=== PATIENT | male | born 1945 | race Caucasian/White ===

== ENCOUNTER 2018-12-29 17:42 | Inpatient (IN) | payer MEDICARE, OTHER ==
[~2018-12-29] VITALS: Ht 175.3 cm; Wt 105.3 kg
[2018-12-29 19:45] VITALS: BP 118/68
[2018-12-29 23:00] VITALS: BP 128/61
[2018-12-30] MEDS ORDERED: ACETAMINOPHEN 325 MG TABLET. PO PRN
[2018-12-30] MEDS ORDERED: DEXTROSE 50% 25 GM / 50ML DISP.SYRIN. IV PRN
[2018-12-30] MEDS ORDERED: MAGNESIUM HYDROXIDE 2,400 MG/30 ML ORAL.SUSP. PO PRN
[2018-12-30] MEDS ORDERED: METHYL SALICYLATE/MENTHOL TOPICAL OINTMENT 57GM TUBE. TP PRN
[2018-12-30] MEDS ORDERED: BENZOCAINE 10% ORAL GEL 7GM TUBE. TP PRN
[2018-12-30] MEDS ORDERED: IV DEXTROSE 5% 250 ML BAG. IV PRN
[2018-12-30] MEDS ORDERED: MAG HYDROX/ALUMINUM HYD/SIMETH 30 ML ORAL.SUSP PO PRN
[2018-12-30] MEDS ORDERED: CETIRIZINE HCL 10 MG TABLET. PO PRN
[2018-12-30 03:00] VITALS: BP 114/60
[2018-12-30 04:20] LABS: HEMATOCRIT 32.5 % (39.0-53.0); RED BLOOD COUNT 3.51 x10^6/uL (4.30-5.70); RED CELL DISTRIBUTION WIDTH 13.7 % (11.5-14.5); WHITE BLOOD COUNT 5.5 x10^3/uL (4.0-11.0)
[2018-12-30 04:36] LABS: ALBUMIN 2.8 g/dL (3.4-5.0); ALBUMIN/GLOBULIN RATIO 0.8 (1.0-1.7); C-REACTIVE PROTEIN 4.4 mg/L (0-3.3); CALCIUM 8.8 mg/dL (8.5-10.1); CREATININE 0.9 mg/dL (0.7-1.3); GFR 82.3; POTASSIUM 4.3 mmol/L (3.5-5.1); TOTAL BILIRUBIN 0.2 mg/dL (0.2-1.0); TOTAL PROTEIN 6.4 g/dL (6.4-8.2)
[2018-12-30] MEDS ORDERED: C.DIFF MED SCREEN BY RX. MC ONE (05:30)
[2018-12-30 07:00] VITALS: BP 127/62
[2018-12-30] MEDS: INSULIN LISPRO 300 UNITS/3 ML VIAL. SQ SCH ×3 (08:00→17:00)
[2018-12-30] MEDS: ASPIRIN CHEWABLE 81 MG TABLET. PO SCH (08:49)
[2018-12-30] MEDS: CARBIDOPA/LEVODOPA 10/100MG TABLET PO SCH ×3 (08:51→21:56)
[2018-12-30] MEDS: ASCORBIC ACID 500 MG TABLET PO SCH ×2 (08:51→21:56)
[2018-12-30] MEDS: LACTOBACILLUS RHAMNOSUS GG 1 CAPSULE. PO SCH ×2 (08:52→21:56)
[2018-12-30] MEDS: metFORMIN 500 MG TABLET PO SCH ×3 (08:53→18:28)
[2018-12-30] MEDS ORDERED: FLU VAX QS 2019-20 (36MOS+)/PF 0.5 ML SYRINGE. VAX IM ONE (09:00)
[2018-12-30] MEDS ORDERED: CEPHALEXIN 250 MG CAPSULE. PO SCH (09:00)
[2018-12-30] MEDS: INSULIN GLARGINE SYRINGE. SQ SCH ×2 (09:14→22:22)
--- NOTE | 2018-12-30 09:31 | PN ---
DATE: 12/30/2018 SUBJECTIVE: The patient is resting, slightly propped up in bed, no apparent distress, awake and alert. On questioning him, denied any complaint. Nursing staff did not voice any concerns that he had an uneventful night. OBJECTIVE: GENERAL: When I examined him, he looked pale but no jaundice, cyanosis or thyromegaly. No jugular venous distention. No limb edema. VITAL SIGNS: His heart rate was 104, blood pressure was 127/62, temperature was 98.3, respiratory rate 22 and oxygen saturation was 93% on room air. HEENT: Showed normocephalic, atraumatic. NECK: Supple. HEART: Showed normal first and second heart sounds. No gallop, rub or murmur. CHEST: Clear to auscultation. No crepitation or rhonchi. ABDOMEN: Distended, soft, nontender. NEUROLOGIC: He is awake and alert, responding appropriately. All cranial nerves intact. He moves all extremities without difficulty; however, he is mostly wheelchair bound. Most of his skin infection has largely resolved; however, he has worsening decubitus ulcer on both heels that is reason for transfer to this hospital. LABORATORY DATA: His lab work this morning showed a white cell count 5500, hemoglobin 11, hematocrit 33, MCV 93 and platelet count of 198,000. His sedimentation rate was 20. His chemistry showed a serum sodium 140, potassium 4.3, chloride 105, bicarbonate 32, anion gap of 3, BUN 19 and creatinine 0.9. Estimated GFR was 82 mL per minute. His glucose was 101. Calcium was 8.8. Total bilirubin, AST, ALT and alkaline phosphatase were normal. Total protein was 6.4 and albumin 2.8. C-reactive protein was 4.4 mg/dL. ASSESSMENT: This is a 73-year-old male patient who was admitted with worsening bilateral heel decubitus ulcer with possible underlying osteomyelitis and has severe peripheral vascular disease. He is known to have insulin- requiring type 2 diabetes mellitus, hypertension and hyperlipidemia. He is an ex-smoker. He is status post right big toe amputation and left fifth toe amputation. We have already consulted the Infectious Disease specialist, the vascular surgeon as well as the wound care team. TANNER CENTENO MD DR: LON/cas JOB#: [id number] / [id number]
--- NOTE | 2018-12-30 09:47 | RAD ---
Examination: FOOT BILAT 3V History: Heel ulcers Comparison/Correlation: None Findings: Three-view exam of the right foot and 3 views, left foot were obtained. Portable technique was utilized. Right foot Amputation of the entire first digit is noted with the exception of the proximal phalangeal proximal metaphyseal and epiphyseal region. Small calcaneal spur is present. Vascular calcifications noted. Left foot 3 view Amputation of the left fifth digit and the distal two thirds of the left fifth metatarsal bone noted. Small calcaneal spur is present. Vascular calcification noted. Spurring bilaterally is noted involving the feet. No bony destructive findings are evident. No acute fracture. Impression: No bony destruction. Consider further evaluation with three-phase bone scintigraphy examination or possibly MRI without and with contrast if able for evaluation of osteomyelitis if clinically warranted. Electronically signed by: Ford Rangel MD (12/30/2018 9:44 AM) [facility]
--- NOTE | 2018-12-30 09:48 | HP ---
ADMIT DATE: 12/29/2018 HISTORY OF PRESENT ILLNESS: The patient is a 73-year-old male patient who was transferred yesterday. In fact, he was admitted to [facility] on 10/31/2018 as a transfer from [facility], who was admitted on account of being delusional, sexually inappropriate, grabbing staff, private parts exposing genitals, being all around the unit, verbally aggressive, paranoid. Apparently, he was hiding his things around facility and then blames others were stealing them, barricading bathroom with chairs and running sink until flooded, propped chairs inside the bathroom door. He was refusing medications including insulin, making graciously inappropriate comments, all this in a background of major depressive disorder as well as dementia, Alzheimer, vascular with behavioral disturbances. While there, he did have multiple skin infections in the form of folliculitis treated with Keflex with good effect. However, he has developed wounds in his heel that have been progressively worsening, has had venous arterial Doppler ultrasound done yesterday, which basically showed that the patient has significant stenosis, at least 50% within the left popliteal artery and given the worsening of bilateral heel decubitus ulcers and stenosis, a decision was made to transfer him to [facility] as recommended by the wound care team to consult the vascular surgeon, Infectious Disease specialist as well as continue with wound care. PAST MEDICAL HISTORY: Significant for type 2 diabetes mellitus, hypertension, peripheral vascular disease, generalized osteoarthritis. PAST SURGICAL HISTORY: Significant for right big toe amputation and left fifth toe amputation. ALLERGIES: He has no known drug allergies. FAMILY HISTORY: Noncontributory. SOCIAL HISTORY: He is . He was residing at [facility]. He used to be an ex-smoker, quit years ago. He continues to drink alcohol occasionally. He actually was transferred from [facility]. MEDICATIONS: He is currently on following medications: He is on cetirizine 10 mg once a day, cephalexin 500 mg 4 times a day, cilostazol 100 mg twice a day, metoprolol tartrate immediate release 25 mg once a day at bedtime, aspirin chewable 81 mg once a day, analgesic balm 4 times a day, acetaminophen 650 mg twice a day, mirtazapine 7.5 mg at bedtime, olanzapine for Zyprexa Zydis 2.5 mg every 2 hours, risperidone 0.25 mg at bedtime, risperidone 12.5 mg intramuscular every 2 weeks. He is on carbidopa/levodopa 10/100 three times a day. He is on benzocaine 10% oral for Orajel 4 times a day as needed, Mylanta 15 mL after meals and milk of magnesia 30 mL p.o. daily p.r.n. for constipation, lactobacillus rhamnosus 1 capsule twice a day. He is on metformin 1000 mg twice a day. He is on Lantus insulin 45 units at bedtime. He is on Lantus insulin 10 units daily. He is on Humalog insulin as insulin sliding scale before meals. He is on ascorbic acid 500 mg twice a day. PHYSICAL EXAMINATION: GENERAL: On examining him, he was resting slightly propped up in bed, in no apparent respiratory distress, slightly pale, but no jaundice, cyanosis or thyromegaly. No jugular venous distention. No limb edema. VITAL SIGNS: His heart rate was 118, blood pressure was 118/68, temperature was 98.1, respiratory rate was 20, and oxygen saturation was 94%. HEAD, EYES, EARS, NOSE AND THROAT: Showed normocephalic, atraumatic. NECK: Supple. HEART: Showed normal first and second heart sounds. No gallop, rub or murmur. CHEST: Clear to auscultation. No crepitation or rhonchi. ABDOMEN: Distended, soft, nontender. No guarding or rigidity. No organomegaly. All hernial orifices intact. Bowel sounds normal. NEUROLOGIC: He is awake, alert, responding appropriately. All cranial nerves are intact. He moves upper extremities to much good extent than lower extremities, mostly bedbound and chair bound. LABORATORY DATA: His lab work showed a white cell count 7000, hemoglobin 11, hematocrit 34, MCV 94 and platelet count 235,000 with normal manual differential. His chemistry showed serum sodium 140, potassium 3.9, chloride 102, bicarbonate 28, anion gap of 10, BUN 21, creatinine 1.2. Estimated GFR was 59 mL per minute. His glucose was 64, calcium was 8.4. Total bilirubin, AST, ALT, alkaline phosphatase were normal. His total protein was 6.7, albumin 3. ASSESSMENT AND PLAN: In summary, this is a 73-year-old male patient who was transferred from [facility] on account of worsening bilateral heel decubitus ulcers with possible underlying osteomyelitis, has severe peripheral vascular disease, type 2 diabetes mellitus, hypertension, and hyperlipidemia. He is an ex-smoker. Plan is to arrange for x-ray of both heel joints, consult the vascular surgeon as an arterial Doppler ultrasound showed more than 50% narrowing of the left gluteal artery. Consult Infectious Disease specialist. Continue to consult the wound care team. Continue to monitor his blood sugar and adjust insulin as needed. Continue with all other medications. TANNER CENTENO MD DR: LON/cas JOB#: [id number] / [id number]
--- NOTE | 2018-12-30 10:29 | PDOC ---
Infectious Disease Note Vital Sign Vital Signs Vital Signs Date Time Temp Pulse Resp B/P (MAP) Pulse Ox O2 Delivery O2 Flow Rate FiO2 12/30/18 07:00 98.3 104 22 127/62 (83) 93 Room Air 98.3 Labs Lab Laboratory Tests Test 12/29/18 21:19 12/30/18 04:00 12/30/18 09:11 Glucose (Fingerstick) 146 mg/dL (70-99) 116 mg/dL (70-99) White Blood Count 5.5 x10^3/uL (4.0-11.0) Red Blood Count 3.51 x10^6/uL (4.30-5.70) Hemoglobin 11.0 g/dL (13.0-17.5) Hematocrit 32.5 % (39.0-53.0) Mean Corpuscular Volume 93 fL (79-100) Mean Corpuscular Hemoglobin 32 pg (25-35) Mean Corpuscular Hemoglobin Concent 34 g/dL (31-37) Red Cell Distribution Width 13.7 % (11.5-14.5) Platelet Count 198 x10^3/uL (140-400) Erythrocyte Sedimentation Rate 20 (0-15) Sodium Level 140 mmol/L (136-145) Potassium Level 4.3 mmol/L (3.5-5.1) Chloride Level 105 mmol/L (98-107) Carbon Dioxide Level 32 mmol/L (21-32) Anion Gap 3 (6-14) Blood Urea Nitrogen 19 mg/dL (8-26) Creatinine 0.9 mg/dL (0.7-1.3) Estimated GFR (Cockcroft-Gault) 82.3 BUN/Creatinine Ratio 21 (6-20) Glucose Level 101 mg/dL (70-99) Calcium Level 8.8 mg/dL (8.5-10.1) Total Bilirubin 0.2 mg/dL (0.2-1.0) Aspartate Amino Transf (AST/SGOT) 16 U/L (15-37) Alanine Aminotransferase (ALT/SGPT) 15 U/L (16-63) Alkaline Phosphatase 54 U/L (46-116) C-Reactive Protein, Quantitative 4.4 mg/L (0-3.3) Total Protein 6.4 g/dL (6.4-8.2) Albumin 2.8 g/dL (3.4-5.0) Albumin/Globulin Ratio 0.8 (1.0-1.7) Objective Assessment Pressure wound/eschar, left mainly, rt minimal, do not believe has osteo, ( not deep and sr normal x ray normal) CVA Plan Plan of Care no need for further ID workup off load DOMINIK DELUCA MD Dec 30, 2018 10:29
[2018-12-30] MEDS: CILOSTAZOL 50 MG TABLET. PO SCH ×2 (10:48→21:55)
--- NOTE | 2018-12-30 10:51 | CONS ---
DATE OF CONSULTATION: 12/30/2018 REQUESTING PHYSICIAN: Dr. Rocha. REASON FOR CONSULTATION: Bilateral calcaneal wounds. HISTORY OF PRESENT ILLNESS: This is a 73-year-old gentleman who has had stroke and he has not been able to walk and wheelchair bound for at least 3 years, who was transferred from [facility]. The patient says he has been in multiple nursing homes last 3-4 years and the patient was at [facility] for abnormal behavior. The patient was noted to have bilateral heel wounds, hence he was transferred for further management. The patient denies any nausea, vomiting or diarrhea. Denies any chest pain, shortness of breath, abdominal pain, urinary symptoms or bowel symptoms. PAST MEDICAL HISTORY: Positive for diabetes mellitus, hypertension, peripheral vascular disease, osteoarthritis, and had a stroke. SOCIAL HISTORY: Negative for smoking, alcohol, illicit drug use. ALLERGIES: No known drug allergies. CURRENT MEDICATIONS: The patient is on cephalexin. REVIEW OF SYSTEMS: As per HPI, all other systems reviewed are negative. PHYSICAL EXAMINATION: GENERAL: Alert, oriented gentleman, not in any distress. VITAL SIGNS: Stable, afebrile. HEENT: NAD. NECK: Supple, no JVP, no lymphadenopathy. LUNGS: Clear. HEART: S1, S2 regular. ABDOMEN: Benign. EXTREMITIES: Mild pitting edema present. The patient's peripheral pulses are weak. Right calcaneal area has very minor superficial skin breakdown. Left calcaneal area has a black eschar, appears superficial. There is no drainage. There are no signs of infection. NEUROLOGIC: The patient is neurologically alert, awake, and appropriate, has good upper extremity use. Lower extremity, he does not have much of use. LABORATORY DATA: White count is 5.5, hemoglobin 11.0, platelets are normal. Sed rate is 20. BUN and creatinine are normal. Liver functions are normal. X-ray of the feet was unremarkable. IMPRESSION: 1. Bilateral calcaneal wounds, although mainly left. Both are pressure wounds. There are no signs of infection. 2. Diabetes. 3. Hypertension. 4. Abnormal behavior. 5. Cerebrovascular accident. RECOMMENDATIONS: We do not see the need for any further Infectious Disease workup. He also does not need any antibiotics. All he needs is offload and Vascular is consulted arterial insufficiency. DOMINIK DELUCA MD DR: KENRICK/cas JOB#: [id number] / [id number] DANET[place]
[2018-12-30 11:00] VITALS: BP 140/72
--- NOTE | 2018-12-30 13:23 | PDOC ---
Provider Note Provider Note Vascular Surgery Consult dictated 73 year old male with bilateral heel wounds worse in the left foot compared to the right. He has vascular disease by examination and duplex. Plan angiogram with IR tomorrow for bilateral runoff and possible initial left leg intervention tomorrow. Will need bilateral heel debridement surgery which will tentatively be scheduled for Thursday. Check carotid duplex. ABBY HORTON MD Dec 30, 2018 13:23
--- NOTE | 2018-12-30 13:57 | RAD ---
EXAM: Carotid Doppler sonogram. HISTORY: Stroke. TECHNIQUE: Davison scale and color Doppler sonographic evaluation of the neck with spectral waveform analysis was performed and static images are submitted for review. FINDINGS: The internal carotid arteries are tortuous. The peak systolic velocity within the right common carotid artery is 86 cm/sec. The peak systolic velocity within the right internal carotid artery is 79 cm/sec and the end diastolic velocity within the right internal carotid artery is 18 cm/sec. The peak systolic velocity within the left common carotid artery is 90 cm/sec. The peak systolic velocity within the left internal carotid artery is 80 cm/sec and the end diastolic velocity within the left internal carotid artery is 19 cm/sec. There is normal antegrade flow within both vertebral arteries. IMPRESSION: No Doppler evidence of hemodynamically significant stenosis within the carotid or vertebral arteries. PQRS Compliance Statement - Stenosis calculations for CT, MR and conventional angiography are based upon measurement of the distal ICA diameter in accordance with the NASCET methodology. Stenosis calculations for carotid ultrasound studies are derived from validated velocity criteria which are known to correlate with the NASCET methodology. Electronically signed by: Madina Michele MD (12/30/2018 1:54 PM) [place] [id number]
[2018-12-30 14:37] LABS: PROTHROMBIN TIME PATIENT 13.4 SEC (11.7-14.0)
[2018-12-30 15:00] VITALS: BP 127/61
--- NOTE | 2018-12-30 15:51 | NUR ---
Wound care: Patient seen per wound care consult. See wound assessment. Patient is well known to us from [place]. Patient has right heel and left heel DFU. First patient transferred over to [address] Wounds are cleansed and assessed. Recommendations to pad heels with ABD pads and kerlix at this time. Patient is scheduled for intervention with IR on 12/31/18, then surgery on 01/05/19 with vascular. Dressings applied. no other wounds noted. coccyx is reddened but remains blanchable. brief and chux changed. Patient repositioned to right side. Bed lowered and call light in reach.
--- NOTE | 2018-12-30 18:56 | NUR ---
Pharmacy Medication Review S: Consulted for medication review re: C.diff Risk Assessment score of 6 O: HODA GONZALEZ is a 73 year old with: DECUB ULCERS Previous C.diff infection: No Previous hospitalization: Within 30 days Recent antibiotics: Within 30 days Use of gastric acid suppressor: No Transfer from [place]: Yes Current antibiotic regimen: Keflex po [employer], now discontinued Current acid suppression regimen: n/a A: Patient has been identified as having risk factors for C.diff infection as noted above. P: Antibiotic Regimen recommendation made: N/A Probiotic ordered: culturelle po bid PPI changed to [id number]: N/A OSMAN BRYAN [facility], 12/30/18 [id number]
[2018-12-30 19:00] VITALS: BP 122/59
--- NOTE | 2018-12-30 20:43 | CONS ---
DATE OF CONSULTATION: 12/30/2018 CHIEF COMPLAINT: Bilateral heel wounds. HISTORY OF PRESENT ILLNESS: The patient is a 73-year-old male with a history of stroke, who has been wheelchair bound and unable to ambulate for the past several years. He was transferred here from [facility] because of ulcers in his heel and abnormal behavior. He has had chronic ulcers in his left and right heel, the left has been worse than the right. He does have some pain with palpation of the left heel wound, but when resting is comfortable. He has had no fevers or chills. Again, he is nonambulatory from his previous stroke. He reports no significant pain in the legs. He has been evaluated with an arterial duplex scan, which shows signs of left popliteal and tibial disease. REVIEW OF SYSTEMS: A 10-point review of systems was performed, which was otherwise negative besides what is mentioned in history of present illness. PAST MEDICAL HISTORY: Includes: 1. Diabetes mellitus. 2. Hypertension. 3. Peripheral arterial disease. 4. Osteoarthritis. 5. History of stroke. SOCIAL HISTORY: He does not smoke or drink alcohol. ALLERGIES: No known drug allergies. PHYSICAL EXAMINATION: GENERAL: The patient is awake and alert. He is currently in no apparent distress. He is afebrile. VITAL SIGNS: Blood pressure of 140/72, pulse of 103, respirations 22 and he is 94% on room air. NECK: Supple. HEART: Regular rate and rhythm without murmurs. LUNGS: Have bilateral breath sounds to auscultation. His bilateral upper extremities are warm without edema. ABDOMEN: Obese, but is soft, nondistended and nontender. EXTREMITIES: His bilateral lower extremities are warm, he has no significant edema in his lower legs or feet. The left heel has an extensive ulceration with black eschar of the skin, no significant surrounding erythema, no fluctuance, no drainage or signs of significant infection. His right heel has a very small ulcer of the skin, deep to the superficial subcutaneous tissue level. There is no surrounding erythema or drainage. He has had previous toe amputations surgeries in the past, which have healed, but this was done many years ago. On vascular examination, he has palpable bilateral femoral pulses. I do not palpate pedal pulses in his feet. NEUROLOGIC: He is awake and alert, normal strength in his arms, chronic weakness in the legs, normal speech, no acute neurologic deficits. IMPRESSION: 1. Bilateral heel ulcers, significantly worse in the left heel compared to the right heel. 2. Signs of bilateral lower extremity peripheral arterial disease by duplex scan and nonpalpable pulses on examination. PLAN: The patient has signs of significant peripheral arterial disease and nonhealing ulcers on his right and left heel. I recommend an angiogram with bilateral lower extremity runoff to evaluate his circulation and a possible initial left leg intervention since the ulcer is worse in his left heel than his right. He may need staged right leg intervention if needed. His creatinine is normal. We will arrange the angiogram tomorrow with Interventional Radiology. He will need eventual debridement of his heel wounds and likely wound VAC therapy; however, there is no need for urgent surgical intervention since there are no signs of significant infection. I certainly would evaluate and improve his circulation prior to debridement. He also has a history of a stroke. We will check a carotid artery duplex scan. He is on daily aspirin. Infectious Disease is following. ABBY HORTON MD DR: KINA/cas JOB#: [id number] / [id number]
[2018-12-30] MEDS: MIRTAZAPINE 7.5 MG TABLET. PO SCH (21:56)
[2018-12-30] MEDS: risperiDONE 0.25 MG TABLET. PO SCH (21:56)
[2018-12-30] MEDS: METOPROLOL TART IMMED RELEASE 25 MG TABLET. PO SCH (21:57)
[2018-12-30 23:00] VITALS: BP 114/56
[2018-12-31] VITALS (13 sets, daily range): BP systolic 91–145; BP diastolic 53–89
[2018-12-31] MEDS: INSULIN LISPRO 300 UNITS/3 ML VIAL. SQ SCH ×3 (08:00→18:02)
[2018-12-31] MEDS: metFORMIN 500 MG TABLET PO SCH ×2 (08:00→18:02)
[2018-12-31] MEDS: CARBIDOPA/LEVODOPA 10/100MG TABLET PO SCH ×3 (09:00→21:28)
[2018-12-31] MEDS: ASCORBIC ACID 500 MG TABLET PO SCH ×2 (09:00→21:28)
[2018-12-31] MEDS: CILOSTAZOL 50 MG TABLET. PO SCH ×2 (09:00→21:28)
[2018-12-31] MEDS: LACTOBACILLUS RHAMNOSUS GG 1 CAPSULE. PO SCH ×2 (09:00→21:29)
--- NOTE | 2018-12-31 09:39 | PDOC ---
Infectious Disease Note Subjective Subjective pt is feeling good, no complaints ROS ROS no n/v/d/sob Vital Sign Vital Signs Vital Signs Date Time Temp Pulse Resp B/P (MAP) Pulse Ox O2 Delivery O2 Flow Rate FiO2 12/31/18 07:00 97.6 89 17 128/65 (86) 93 Room Air 97.6 Physical Exam PHYSICAL EXAM GENERAL: Alert, oriented gentleman, not in any distress. VITAL SIGNS: Stable, afebrile. HEENT: NAD. NECK: Supple, no JVP, no lymphadenopathy. LUNGS: Clear. HEART: S1, S2 regular. ABDOMEN: Benign. EXTREMITIES: Mild pitting edema present. The patient's peripheral pulses are weak. Right calcaneal area has very minor superficial skin breakdown. Left calcaneal area has a black eschar, appears superficial. There is no drainage. There are no signs of infection. NEUROLOGIC: The patient is neurologically alert, awake, and appropriate, has good upper extremity use. Lower extremity, he does not have much of use. Labs Lab Laboratory Tests Test 12/30/18 11:05 12/30/18 14:19 12/30/18 16:58 12/30/18 22:11 Glucose (Fingerstick) 116 mg/dL (70-99) 104 mg/dL (70-99) 141 mg/dL (70-99) Prothrombin Time 13.4 SEC (11.7-14.0) Prothromb Time International Ratio 1.1 (0.8-1.1) Activated Partial Thromboplast Time 26 SEC (24-38) Test 12/31/18 07:46 Glucose (Fingerstick) 88 mg/dL (70-99) Objective Assessment 1. Bilateral calcaneal wounds, although mainly left. Both are pressure wounds. There are no signs of infection. 2. Diabetes. 3. Hypertension. 4. Abnormal behavior. 5. Cerebrovascular accident. 6 PAD Plan Plan of Care angio no antibiotics off load will s/o, please call if condition changes or questions DOMINIK DELUCA MD Dec 31, 2018 09:39
[2018-12-31] MEDS ORDERED: LIDOCAINE WITH 8.4% SOD BICARB 3 ML DISP.SYRIN. ONE (09:46)
[2018-12-31] MEDS ORDERED: IODIXANOL 320 MG/ML 100 ML VIAL. ONE (09:46)
[2018-12-31] MEDS ORDERED: HEPARIN for ARTERIAL LINE 1,500 ML ONE (09:46)
[2018-12-31] MEDS ORDERED: fentaNYL PF VIAL 100 MCG/2 ML VIAL ONE (10:06)
[2018-12-31] MEDS ORDERED: MIDAZOLAM HCL/PF 2 MG/2 ML VIAL. ONE (10:06)
[2018-12-31] MEDS ORDERED: HEPARIN for IV BOLUS 10,000 UNIT/10 ML VIAL. ONE (10:06)
[2018-12-31] MEDS: INSULIN GLARGINE SYRINGE. SQ SCH ×2 (10:11→21:31)
--- NOTE | 2018-12-31 10:39 | PN ---
DATE: 12/31/2018 SUBJECTIVE: The patient was transferred from [facility] with worsening bilateral heel decubitus ulcers. He was seen by the vascular surgeon and apparently he is scheduled for an aortogram with runoff. He himself did not offer any complaint. He was seen by the wound care team as well as the Infectious Disease team and the plan is to observe him off antibiotics for now. PHYSICAL EXAMINATION: GENERAL: On examining him, he looked well and was clearly in no apparent respiratory distress. No pallor, jaundice, cyanosis or thyromegaly. No jugular venous distension. No lower limb edema. VITAL SIGNS: His heart rate was 89, blood pressure was 128/65, temperature was 97.6, respiratory rate was 17 and oxygen saturation was 93%. HEAD, EYES, EARS, NOSE AND THROAT: Showed normocephalic, atraumatic. NECK: Supple. CARDIAC: Normal first and second heart sounds. No gallop or murmur. CHEST: Clear to auscultation. No crepitation or rhonchi. ABDOMEN: Distended, soft, nontender. No guarding or rigidity. No organomegaly All hernial orifice intact. Bowel sounds normal. NEUROLOGIC: He is awake, alert, responding appropriately. He moves his upper extremities without difficulty. He is mostly bedbound, chair bound. LABORATORY DATA: His lab work as of yesterday showed hemoglobin of 11, hematocrit 33 with normal white cell count and platelets. His BUN is 19 and creatinine 0.9 with normal electrolytes and liver function tests. ASSESSMENT: 1. Bilateral heel ulcers significantly worse the left side compared to the right. 2. Peripheral vascular disease with an arterial Doppler ultrasound done at [facility]. He is scheduled for further evaluation by an angiogram today and eventual debridement of his heel wounds and wound VAC placement. TANNER CENTENO MD DR: LON/cas JOB#: [id number] / [id number]
[2018-12-31] MEDS ORDERED: IODIXANOL 320 MG/ML 100 ML VIAL. IART ONE (11:45)
[2018-12-31] MEDS ORDERED: LIDOCAINE WITH 8.4% SOD BICARB 3 ML DISP.SYRIN. IJ ONE (11:45)
[2018-12-31] MEDS ORDERED: fentaNYL PF VIAL 100 MCG/2 ML VIAL IV ONE (11:45)
[2018-12-31] MEDS ORDERED: HEPARIN for IV BOLUS 10,000 UNIT/10 ML VIAL. IV ONE (11:45)
[2018-12-31] MEDS ORDERED: MIDAZOLAM HCL/PF 2 MG/2 ML VIAL. IV ONE (11:45)
[2018-12-31] MEDS: ASPIRIN CHEWABLE 81 MG TABLET. PO SCH (12:22)
--- NOTE | 2018-12-31 12:58 | RAD ---
12/31/2018 Procedure: 1. Abdominal aortogram 2. Pelvic angiography 3. Left lower extremity angiography 4. Left popliteal artery angioplasty 5. Right lower extremity angiography Clinical Indication: angio with bilateral runoff and possible initial left leg intervention Discussion: The procedure was explained in its entirety to the patient or the patients designated players club representative by a member of the treatment team, including a discussion of the risks, benefits and commonly accepted alternatives to the procedure, as well as the expected consequences of no therapy whatsoever. Discussion of the risks included, but was not limited to, those that are most frequent and those that are rare but possibly severe or life-threatening, as well as the possibility of unforeseen complications. All elements of maximal sterile barrier technique including the use of a cap, mask, sterile gown, sterile gloves, large sterile sheet, appropriate hand hygiene, and 2% chlorhexidine for cutaneous antisepsis (or acceptable alternative antiseptic per current guidelines) were followed for this procedure. The right groin was prepped and draped using sterile barrier technique as described. The right common femoral artery was accessed ultrasound-guided be patent. Right common femoral artery was accessed using micropuncture technique and direct ultrasound guidance. Reference ultrasound images were saved the medical record. A 5 [place] vascular sheath was placed. An Omni flush catheter was advanced to the abdominal aorta. Abdominal angiography was performed. The abdominal aorta is normal in course and caliber without evidence of aneurysm or narrowing. Limited evaluation of mesenteric and renal vasculature is unremarkable. The catheter was repositioned into the inferior abdominal aorta. Pelvic angiography was performed demonstrating no significant aortoiliac stenosis. Some tortuosity of the iliac vasculature is seen. The catheter was repositioned in the left common femoral artery. Angiograms of the left lower extremity were performed demonstrating 70% stenosis of the left popliteal artery. No other hemodynamically significant stenosis involving the major arteries of left lower extremity were identified. Specifically the posterior tibial artery remains patent supplying the heel with hyperemia noted surrounding the heel wound. Abdomen over sheath was placed. Angioplasty of the popliteal artery stenosis performed with a 5 cm balloon which improved morphology and flow. Mild residual persistent narrowing was seen. Angiography of the right lower extremity was then performed through the sheath. Right common femoral, superficial femoral, popliteal, anterior tibial, posterior tibial arteries are patent. Dorsalis pedis and lateral plantar artery or patent proximally. The sheath was removed. A Mynx device was deployed to facilitate hemostasis. Sterile dressings were applied. No immediate complications were identified. IMPRESSION: 1. No evidence of hemodynamic significant aortoiliac stenosis 2. 70% popliteal artery narrowing treated with balloon angioplasty as described. Three-vessel runoff on the left. 3. No evidence of femoropopliteal stenosis on the right. Three-vessel runoff on the right. Total fluoroscopy time: 11.9 min Dose area product: 280 Gycm2 The procedures performed under conscious sedation including continuous cardiopulmonary monitoring via dedicated sedation nurse. Eehf-ih-effk sedation time: 144 minutes
[2018-12-31] MEDS: MIRTAZAPINE 7.5 MG TABLET. PO SCH (21:28)
[2018-12-31] MEDS: risperiDONE 0.25 MG TABLET. PO SCH (21:28)
[2018-12-31] MEDS: METOPROLOL TART IMMED RELEASE 25 MG TABLET. PO SCH (21:29)
[2019-01-01] VITALS (7 sets, daily range): BP systolic 86–142; BP diastolic 42–80
[2019-01-01] MEDS: INSULIN LISPRO 300 UNITS/3 ML VIAL. SQ SCH ×3 (08:00→17:39)
--- NOTE | 2019-01-01 08:40 | PN ---
DATE: 01/01/2019 SUBJECTIVE: The patient is resting, slightly propped up in bed, in no apparent distress, awake, alert. On questioning him, he denied any complaint. He apparently has had an aortogram done yesterday and showed no evidence of hemodynamically significant aortoiliac stenosis, 70% popliteal artery narrowing treated with balloon angioplasty as described, 3-vessel runoff on the left, no evidence of femoral popliteal stenosis on the right, 3-vessel runoff in the right. He was seen in consultation by the Infectious Disease who did not recommend any antibiotic and he is also followed by the wound care team. PHYSICAL EXAMINATION: GENERAL: When I examined him this morning, he looked well and was clearly in no apparent respiratory distress. No pallor, jaundice, cyanosis or thyromegaly. No jugular venous distention. No limb edema. VITAL SIGNS: His heart rate was 111, blood pressure was 112/42, temperature was 97.7, respiratory rate was 18 and oxygen saturation was 91%. HEAD, EYES, EARS, NOSE AND THROAT: Showed normocephalic, atraumatic. NECK: Supple. HEART: Showed normal first and second heart sounds. No gallop or murmur. CHEST: Clear to auscultation. No crepitation or rhonchi. ABDOMEN: Distended, soft, nontender. No guarding or rigidity. No organomegaly. All hernial orifices intact. Bowel sounds normal. NEUROLOGIC: He was awake, alert, responding appropriately. All cranial nerves are intact. He moves his upper extremities to much good extent than lower extremities, mostly bedbound, chair bound. He has bilateral heel decubitus ulcer, worse on the left. ASSESSMENT: Other medical problems include: 1. Type 2 diabetes mellitus, reasonably controlled. 2. Hypertension. 3. Cerebrovascular accident. 4. Peripheral vascular disease. PLAN: To continue with wound care. Continue to monitor his blood sugar and adjust insulin as needed. Continue with pain management. We obviously come Thursday will [facility] to see whether he qualifies to be there or otherwise he will be discharged back to his [facility] [place] [facility] facility. TANNER CENTENO MD DR: LON/cas JOB#: [id number] / [id number]
[2019-01-01] MEDS: ASPIRIN CHEWABLE 81 MG TABLET. PO SCH (09:02)
[2019-01-01] MEDS: LACTOBACILLUS RHAMNOSUS GG 1 CAPSULE. PO SCH ×2 (09:02→20:30)
[2019-01-01] MEDS: ASCORBIC ACID 500 MG TABLET PO SCH ×2 (09:03→20:31)
[2019-01-01] MEDS: metFORMIN 500 MG TABLET PO SCH ×2 (09:03→17:31)
[2019-01-01] MEDS: CILOSTAZOL 50 MG TABLET. PO SCH ×2 (09:03→20:31)
[2019-01-01] MEDS: CARBIDOPA/LEVODOPA 10/100MG TABLET PO SCH ×3 (09:03→20:31)
[2019-01-01] MEDS: INSULIN GLARGINE SYRINGE. SQ SCH ×2 (09:06→20:40)
[2019-01-01] MEDS: METOPROLOL TART IMMED RELEASE 25 MG TABLET. PO SCH (20:31)
[2019-01-01] MEDS: MIRTAZAPINE 7.5 MG TABLET. PO SCH (20:31)
[2019-01-01] MEDS: risperiDONE 0.25 MG TABLET. PO SCH (20:31)
[2019-01-02 03:07] VITALS: BP 102/44
[2019-01-02 07:00] VITALS: BP 83/44
[2019-01-02] MEDS: INSULIN LISPRO 300 UNITS/3 ML VIAL. SQ SCH ×3 (08:00→17:00)
[2019-01-02] MEDS: metFORMIN 500 MG TABLET PO SCH ×2 (08:00→17:41)
[2019-01-02] MEDS: CILOSTAZOL 50 MG TABLET. PO SCH ×2 (09:00→21:13)
[2019-01-02] MEDS ORDERED: IV NORMAL SALINE 500ML BAG 500 ML IV ONE (09:15)
--- NOTE | 2019-01-02 09:15 | PN ---
DATE: 01/02/2019 SUBJECTIVE: The patient is resting, slightly propped up in bed, no apparent distress. He is awake, alert. In questioning him, he denied any complaint. The nursing staff; however, is concerned that his blood sugar is low and he is also mildly hypertensive. PHYSICAL EXAMINATION: GENERAL: When I examined him, he looked pale, but no jaundice, cyanosis or thyromegaly. No jugular venous distension. No limb edema. VITAL SIGNS: His heart rate was 100, blood pressure was 83/44, temperature was 98.2, respiratory rate was 18 and oxygen saturation was 95% on room air. HEAD, EYES, EARS, NOSE AND THROAT: Showed he is normocephalic, atraumatic. NECK: Supple. HEART: Showed normal first and second heart sounds with no gallop or murmur. CHEST: Clear to auscultation. No crepitation or rhonchi. ABDOMEN: Distended, soft, nontender. NEUROLOGIC: He was awake, alert, responding appropriately. All cranial nerves are intact. He moves upper extremities without difficulty. He is mostly bedbound, chair bound. He has bilateral decubitus ulcers in both knees, more so on the left. His intake and output were incompletely recorded. LABORATORY DATA: As of this morning, his blood sugar was 65. PLAN: Plan is to hold his metoprolol and cut down his Lantus to 35 units and ordered a bolus of 500 mL of normal saline. We will repeat all his lab works tomorrow. TANNER CENTENO MD DR: LON/cas JOB#: [id number] / [id number]
[2019-01-02] MEDS: LACTOBACILLUS RHAMNOSUS GG 1 CAPSULE. PO SCH ×2 (09:48→21:13)
[2019-01-02] MEDS: ASPIRIN CHEWABLE 81 MG TABLET. PO SCH (09:48)
[2019-01-02] MEDS: ASCORBIC ACID 500 MG TABLET PO SCH ×2 (09:48→21:14)
[2019-01-02] MEDS: CARBIDOPA/LEVODOPA 10/100MG TABLET PO SCH ×3 (09:48→21:13)
[2019-01-02] MEDS: INSULIN GLARGINE SYRINGE. SQ SCH ×2 (09:53→21:16)
[2019-01-02 11:00] VITALS: BP 99/49
[2019-01-02 15:00] VITALS: BP 115/58
[2019-01-02 19:00] VITALS: BP 145/73
[2019-01-02] MEDS: MIRTAZAPINE 7.5 MG TABLET. PO SCH (21:13)
[2019-01-02] MEDS: METOPROLOL TART IMMED RELEASE 25 MG TABLET. PO SCH (21:13)
[2019-01-02] MEDS: risperiDONE 0.25 MG TABLET. PO SCH (21:13)
[2019-01-02 23:00] VITALS: BP 148/82
[2019-01-03 03:00] VITALS: BP 121/76
[2019-01-03 06:01] LABS: HEMOGLOBIN 11.8 g/dL (13.0-17.5); RED BLOOD COUNT 3.78 x10^6/uL (4.30-5.70); RED CELL DISTRIBUTION WIDTH 13.8 % (11.5-14.5); WHITE BLOOD COUNT 6.9 x10^3/uL (4.0-11.0)
[2019-01-03 06:23] LABS: ALBUMIN 2.9 g/dL (3.4-5.0); ALBUMIN/GLOBULIN RATIO 0.8 (1.0-1.7); CALCIUM 8.7 mg/dL (8.5-10.1); CREATININE 0.9 mg/dL (0.7-1.3); GFR 82.3; POTASSIUM 3.9 mmol/L (3.5-5.1); TOTAL BILIRUBIN 0.2 mg/dL (0.2-1.0); TOTAL PROTEIN 6.6 g/dL (6.4-8.2)
[2019-01-03 07:00] VITALS: BP 115/61
[2019-01-03] MEDS: INSULIN LISPRO 300 UNITS/3 ML VIAL. SQ SCH ×3 (08:00→17:00)
--- NOTE | 2019-01-03 10:02 | PN ---
DATE: 01/03/2019 SUBJECTIVE: The patient is resting slightly propped up in bed, in no apparent respiratory distress, awake and alert. On questioning, he denied any complaint to nursing staff, did not voice any concern, and stated that his blood sugar has been stable. Blood pressure has improved after an IV bolus yesterday. He is apparently scheduled for surgical debridement tomorrow. PHYSICAL EXAMINATION: GENERAL: When I examined him this morning, he looked well and was clearly in no apparent respiratory distress. No pallor, jaundice, cyanosis, or thyromegaly. No jugular venous distension. No lower limb edema. VITAL SIGNS: His heart rate was 102, blood pressure 115/61, temperature was 97.3, respiratory rate was 17, and oxygen saturation was 96%. HEAD, EYES, EARS, NOSE, AND THROAT: Normocephalic and atraumatic. NECK: Supple. CARDIAC: Normal first and second heart sounds. No gallop or murmur. CHEST: Clear to auscultation. No crepitation or rhonchi. ABDOMEN: Distended, soft, and nontender. NEUROLOGIC: He was awake, alert, and responding appropriately. All cranial nerves intact. He moves upper extremities without difficulty and has functional paraplegia. He is mostly bedbound and chair bound. SKIN: He has bilateral heel decubitus ulcer for which he is scheduled for debridement tomorrow. His intake over the last 24 hours and output were incompletely recorded. LABORATORY DATA: His lab work as of this morning showed a white cell count 6900, hemoglobin 11.8, hematocrit 35, MCV 93, and platelet count of 190,000. Serum sodium 144, potassium 3.9, chloride 108, bicarbonate 27, anion gap of 9, BUN 17, creatinine 0.9, and estimated GFR was 82 mL per minute. Glucose was 101. Calcium was 8.7. Total bilirubin, AST, ALT, and alkaline phosphatase were normal. Total protein was 6.6. Albumin 2.9. ASSESSMENT: 1. Bilateral heel decubitus ulcers, worse on the left. 2. Severe peripheral vascular disease, status post angioplasty with stent deployment to the left gluteal artery. Other medical problems include: A. Type 2 diabetes mellitus, reasonably controlled. B. Hypertension. C. Cerebrovascular accident. PLAN: To continue with wound care. Continue offloading his wounds. Continue to monitor his blood sugar and adjust insulin as needed. He is apparently scheduled for surgical debridement tomorrow. TANNER CENTENO MD DR: LON/cas JOB#: [id number] / [id number]
[2019-01-03 11:00] VITALS: BP 113/55
[2019-01-03] MEDS: ASCORBIC ACID 500 MG TABLET PO SCH ×2 (12:49→21:00)
[2019-01-03] MEDS: CILOSTAZOL 50 MG TABLET. PO SCH ×2 (12:49→21:01)
[2019-01-03] MEDS: LACTOBACILLUS RHAMNOSUS GG 1 CAPSULE. PO SCH ×2 (12:49→21:01)
[2019-01-03] MEDS: metFORMIN 500 MG TABLET PO SCH ×2 (12:49→17:08)
[2019-01-03] MEDS: CARBIDOPA/LEVODOPA 10/100MG TABLET PO SCH ×3 (12:50→21:01)
[2019-01-03] MEDS: ASPIRIN CHEWABLE 81 MG TABLET. PO SCH (12:50)
[2019-01-03] MEDS: INSULIN GLARGINE SYRINGE. SQ SCH ×2 (12:54→21:00)
--- NOTE | 2019-01-03 13:52 | NUR ---
JESSICA following pt for dc planning. Chart reviewed and discussed with RN. Pt is a transferred from [facility]. Spoke with Sharon at [facility] and pt has been staying at the unit since 10/31/18. Pt was originally from [facility] and rehab but is not able to return. Blu at [facility] has been working on finding placement at an Assisted Living facility in [place]. Per Sharon, they were awaiting for pt's LTC medicaid to switch to [facility] Medicaid. JESSICA left a voice mail for Blu Lee at [facility] requesting a call back. Pt does not have any behaviors at this time and has been stable even at [facility] but will need placement. Pt is scheduled for a procedure tomorrow. Will continue to follow.
[2019-01-03 15:00] VITALS: BP 102/58
[2019-01-03 19:00] VITALS: BP 111/63
[2019-01-03] MEDS: MIRTAZAPINE 7.5 MG TABLET. PO SCH (21:00)
[2019-01-03] MEDS: risperiDONE 0.25 MG TABLET. PO SCH (21:00)
[2019-01-03] MEDS: METOPROLOL TART IMMED RELEASE 25 MG TABLET. PO SCH (21:01)
[2019-01-03 23:00] VITALS: BP 97/62
[2019-01-04] VITALS (12 sets, daily range): BP systolic 81–122; BP diastolic 40–88
[2019-01-04] MEDS ORDERED: IV RINGERS,LACTATED 1000ML 1,000 ML IV SCH (07:00)
[2019-01-04] MEDS ORDERED: PROCHLORPERAZINE 10 MG/2 ML VIAL. IV PRN (07:00)
[2019-01-04] MEDS ORDERED: HYDROmorphone 2 MG/ML VIAL IV PRN (07:00)
[2019-01-04] MEDS ORDERED: fentaNYL PF VIAL 100 MCG/2 ML VIAL IV PRN ×2 (07:00)
[2019-01-04] MEDS ORDERED: MORPHINE SULFATE 2 MG/ML VIAL. IV PRN (07:00)
[2019-01-04] MEDS: INSULIN LISPRO 300 UNITS/3 ML VIAL. SQ SCH ×3 (08:00→17:33)
[2019-01-04] MEDS: ASPIRIN CHEWABLE 81 MG TABLET. PO SCH (08:00)
[2019-01-04] MEDS: metFORMIN 500 MG TABLET PO SCH ×2 (08:00→17:29)
[2019-01-04] MEDS: LACTOBACILLUS RHAMNOSUS GG 1 CAPSULE. PO SCH ×2 (09:00→21:40)
[2019-01-04] MEDS: ASCORBIC ACID 500 MG TABLET PO SCH ×2 (09:00→21:41)
[2019-01-04] MEDS: CILOSTAZOL 50 MG TABLET. PO SCH ×2 (09:00→21:40)
[2019-01-04] MEDS: INSULIN GLARGINE SYRINGE. SQ SCH ×2 (09:00→21:48)
[2019-01-04] MEDS: CARBIDOPA/LEVODOPA 10/100MG TABLET PO SCH ×3 (09:00→21:40)
--- NOTE | 2019-01-04 09:17 | PDOC ---
PROGRESS NOTES Subjective Subjective no complaints Objective Objective Vital Signs Date Time Temp Pulse Resp B/P (MAP) Pulse Ox O2 Delivery O2 Flow Rate FiO2 01/04/19 07:00 97.6 84 16 100/51 (67) 92 97.6 01/03/19 20:00 Room Air Intake and Output 01/04/19 07:00 Intake Total 120 ml Balance 120 ml Intake Oral 120 ml # Voids 2 Physical Exam Abdomen: Normal bowel sounds, Soft Heart: Regular rate, Normal S1 Extremities: No clubbing General: Alert HEENT: Atraumatic Lungs: Clear to auscultation Neck: Supple Neuro: Normal speech Psych/Mental Status: Mood NL Assessment Assessment ASSESSMENT: 1. Bilateral heel decubitus ulcers, worse on the left. 2. Severe peripheral vascular disease, status post angioplasty with stent. 3. Type 2 diabetes mellitus, reasonably controlled. 4. Hypertension. 5. Cerebrovascular accident. PLAN: Debridement today cuate heal ulcers. s/p stent placement. To continue with wound care. Continue offloading his wounds. Continue to monitor his blood sugar and adjust insulin as needed. labs reviewed , spoke with staff. Comment Review of Relevant I have reviewed the following items kaylah (where applicable) has been applied. Labs Laboratory Tests Test 01/03/19 11:43 01/03/19 17:06 01/03/19 20:59 01/04/19 08:15 Glucose (Fingerstick) 111 mg/dL (70-99) 141 mg/dL (70-99) 146 mg/dL (70-99) 108 mg/dL (70-99) Medications Current Medications Cefazolin Sodium 1 gm/Sodium Chloride 500 ml @ 500 mls/hr 1X ONCE IRR ; Start 01/04/19 at 06:00; Stop 01/04/19 at 06:59; Status DC Cefazolin Sodium/ Dextrose 50 ml @ 100 mls/hr 1X PREOP ONCE IV ; Start 01/04/19 at 09:30; Stop 01/04/19 at 09:59 Fentanyl Citrate (Fentanyl 2ml Vial) 25 mcg PRN Q5MIN PRN IV MILD PAIN 1-3; Start 01/04/19 at 07:00; Stop 01/05/19 at 06:59 Fentanyl Citrate (Fentanyl 2ml Vial) 50 mcg PRN Q5MIN PRN IV MODERATE TO SEVERE PAIN; Start 01/04/19 at 07:00; Stop 01/05/19 at 06:59 Hydromorphone HCl (Dilaudid) 0.5 mg PRN Q10MIN PRN IV SEV PAIN, Second choice; Start 01/04/19 at 07:00; Stop 01/05/19 at 06:59 Morphine Sulfate (Morphine Sulfate) 1 mg PRN Q10MIN PRN IV SEVERE PAIN 7-10; Start 01/04/19 at 07:00; Stop 01/05/19 at 06:59 Prochlorperazine Edisylate (Compazine) 5 mg PACU PRN PRN IV NAUSEA, MRX1; Start 01/04/19 at 07:00; Stop 01/05/19 at 06:59 Ringer's Solution 1,000 ml @ 30 mls/hr Q24H IV ; Start 01/04/19 at 07:00; Stop 01/04/19 at 18:59 Risperidone (RisperDAL CONSTA) 12.5 mg Q2WKS IM ; Start 01/07/19 at 09:00 Vitals/I & O Vital Sign - Last 24 Hours 01/03/19 01/03/19 01/03/19 01/03/19 11:00 15:00 19:00 20:00 Temp 98.2 97.9 98.6 98.2 97.9 98.6 Pulse 70 100 108 Resp 17 18 20 B/P (MAP) 113/55 (74) 102/58 (73) 111/63 (79) Pulse Ox 94 97 98 O2 Delivery Room Air Room Air Room Air 01/03/19 01/03/19 01/04/19 01/04/19 21:01 23:00 03:00 07:00 Temp 98.6 97.8 97.6 98.6 97.8 97.6 Pulse 108 97 96 84 Resp 18 16 16 B/P (MAP) 111/63 97/62 (74) 97/57 (70) 100/51 (67) Pulse Ox 96 95 92 Intake and Output 01/03/19 01/03/19 01/04/19 15:00 23:00 07:00 Intake Total 120 ml Balance 120 ml AUGUSTO DIOR MD Jan 04, 2019 09:17
[2019-01-04] MEDS ORDERED: SURGICEL FIBRILLAR 1X2 EACH. ONE (09:22)
[2019-01-04] MEDS ORDERED: LIDOCAINE 1% PF 30 ML VIAL. ONE (09:22)
[2019-01-04] MEDS ORDERED: LIDOCAINE 2% PF 5 ML VIAL. ONE (10:26)
[2019-01-04] MEDS ORDERED: fentaNYL PF VIAL 100 MCG/2 ML VIAL ONE (10:26)
[2019-01-04] MEDS ORDERED: PROPOFOL 20 ML IV ONE (10:26)
--- NOTE | 2019-01-04 10:26 | NUR ---
Per pt's daughter, Valerie, she has been working the the ins co as they have chosen a new facility for the pt to go on upon d/c. Valerie requested to speak with SW. SCHERER for [facility]. Pt is in OR at this time, but Valerie will be bedside the remainder of the day.
--- NOTE | 2019-01-04 10:47 | PDOC ---
Provider Note Provider Note AF VSS awake and alert right groin with no hematoma right and left foot with dry dressings, has necrotic bilateral heel ulcers A/P 73 year old male with bilateral heel ulcers (left worse than right) and peripheral artery disease. He had an angiogram with left popliteal artery angioplasty. No significant right leg disease. Plan bilateral heel debridement today in OR. ABBY HORTON MD Jan 04, 2019 10:47
[2019-01-04] MEDS ORDERED: ONDANSETRON PF 4 MG/2 ML VIAL. ONE (10:57)
[2019-01-04] MEDS ORDERED: SEVOFLURANE 31 TO 60 MINUTES. IH ONE (10:57)
[2019-01-04] MEDS ORDERED: PHENYLEPHRINE in 0.9% NACL PF 1 MG/10 ML SYRINGE. IV ONE (10:57)
--- NOTE | 2019-01-04 11:52 | PDOC4 ---
Operative Note Operative Note Operative Report Dictated Pre-op: bilateral heel necrotic ulcers Post-op: same Surgery: Bilateral heel debridement Anesthesia: general Blood loss: minimal Surgeon: ABBY Clark MD Jan 04, 2019 11:52
--- NOTE | 2019-01-04 12:07 | OP ---
DATE OF SURGERY: 01/04/2019 SURGEON: Colette Coker M.D. ANESTHESIA USED: General anesthesia. PREOPERATIVE DIAGNOSES: 1. Right heel small necrotic ulcer. 2. Left heel extensive large necrotic ulcer. 3. Left leg peripheral arterial disease. POSTOPERATIVE DIAGNOSES: 1. Right heel small necrotic ulcer. 2. Left heel extensive large necrotic ulcer. 3. Left leg peripheral arterial disease. OPERATION PERFORMED: 1. Right heel sharp excisional debridement of necrotic skin and subcutaneous tissue, measurements after debridement were 1 cm in length x 1 cm in width x superficial in depth. 2. Left heel sharp excisional debridement of necrotic skin and subcutaneous tissue, measurements after debridement were 5 cm in length x 5 cm in width x 2 mm in depth. BLOOD LOSS: Minimal. ANESTHESIA USED: General anesthesia. INDICATIONS: The patient is a 73-year-old male with chronic bilateral heel necrotic ulcers. The wound on his left heel is much larger than the right heel. He was found to have peripheral arterial disease by duplex imaging. An angiogram was performed and left leg angioplasty of his popliteal artery was performed. There was no significant disease in his right leg. We recommend surgical debridement of his necrotic heel ulcers and long-term wound care. Informed consent was obtained. DETAILS OF THE OPERATION: The patient was brought to the operating room and placed on table in supine position. He received general anesthesia and monitored throughout the case by the anesthesiologist. His bilateral feet and ankles were prepped and draped by normal sterile fashion. Sharp excisional debridement was performed of the left heel, removing necrotic skin and subcutaneous tissue throughout the large portion of the heel. Measurements are listed above. We continued dissection until there was no further necrotic tissue. There was good bleeding from the wound bed, which was controlled with electrocautery. The right heel has a smaller circular ulcer with necrotic tissue. Necrotic subcutaneous tissue and skin were excised sharply from the ulcer. Hemostasis was gained with electrocautery. There was no further necrotic tissue. We irrigated both wounds with antibiotic solution. They were covered with Aquacel soaked with saline gauze, 4 x 4 dressings, Kerlix wraps and Will bandages. He tolerated the surgery with no immediate complications. COLETTE COKER MD DR: KINA/cas JOB#: [id number] / [id number]
--- NOTE | 2019-01-04 15:50 | NUR ---
JESSICA following pt. Spoke with Yeimi from [facility], phone: [phone], fax: [phone], Azeb from [facility], phone: [phone] (alternative # [phone]) and they have been working with [employer] Medicaid to admit pt to facility. JESSICA discussed pt had procedure today and anticipates pt will be able to go to [place] with home health services. Azeb reported pt has mostly been w/c bound but they were planning on starting PT/OT services after transferring to [place]. Yeimi reported they will need to a bedside eval if pt will go to [place] first instead of SNU. Pt's room also will need to furnished. JESSICA discussed SW anticipates pt will be ready 24-48hrs but unable to determine skilled needs until pt is evaluated by PT/OT. Plan 1. Rehab screen recommends PT/OT order- discussed with RN regarding this to eval Skilled needs. unsure if pt is cleared to bear weight after procedure. 2. [facility] and insurance CM would like pt to be cleared by Physician about admission to Assisted Living before furnishing his room. 3. JESSICA faxed clinicals to [facility] and also left message to pt's daughter, Loly, phone: [phone]. Discussed with Rosa at [facility] as well.
[2019-01-04] MEDS: MIRTAZAPINE 7.5 MG TABLET. PO SCH (21:40)
[2019-01-04] MEDS: risperiDONE 0.25 MG TABLET. PO SCH (21:41)
[2019-01-04] MEDS: METOPROLOL TART IMMED RELEASE 25 MG TABLET. PO SCH (21:41)
[2019-01-05 03:00] VITALS: BP 127/72
[2019-01-05 07:00] VITALS: BP 117/68
[2019-01-05] MEDS: INSULIN LISPRO 300 UNITS/3 ML VIAL. SQ SCH ×3 (08:00→17:00)
[2019-01-05] MEDS: LACTOBACILLUS RHAMNOSUS GG 1 CAPSULE. PO SCH ×2 (08:17→21:07)
[2019-01-05] MEDS: metFORMIN 500 MG TABLET PO SCH ×2 (08:17→17:31)
[2019-01-05] MEDS: CILOSTAZOL 50 MG TABLET. PO SCH ×2 (08:17→21:07)
[2019-01-05] MEDS: ASCORBIC ACID 500 MG TABLET PO SCH ×2 (08:18→21:07)
[2019-01-05] MEDS: CARBIDOPA/LEVODOPA 10/100MG TABLET PO SCH ×3 (08:18→21:07)
[2019-01-05] MEDS: ASPIRIN CHEWABLE 81 MG TABLET. PO SCH (08:18)
[2019-01-05] MEDS: INSULIN GLARGINE SYRINGE. SQ SCH ×2 (08:23→21:12)
--- NOTE | 2019-01-05 09:32 | PDOC ---
PROGRESS NOTES Subjective Subjective feels better today Objective Objective Vital Signs Date Time Temp Pulse Resp B/P (MAP) Pulse Ox O2 Delivery O2 Flow Rate FiO2 01/05/19 07:00 97.7 73 20 117/68 (84) 97 Room Air 97.7 01/04/19 11:56 10 Intake and Output 01/05/19 07:00 Intake Total 400 ml Output Total 5 ml Balance 395 ml Intake Oral 0 ml IV Total 400 ml Estimated Blood Loss 5 ml # Voids 4 Physical Exam Abdomen: Normal bowel sounds, Soft Heart: Regular rate, Normal S1 Extremities: No clubbing General: Alert HEENT: Atraumatic Lungs: Clear to auscultation Neck: Supple Neuro: Normal speech Psych/Mental Status: Mood NL Skin: Other COMMENT cuate heal dressing s/p surgery on both heals Assessment Assessment ASSESSMENT: 1. Bilateral heel decubitus ulcers, worse on the left. 2. Severe peripheral vascular disease, status post angioplasty with stent. 3. Type 2 diabetes mellitus, reasonably controlled. 4. Hypertension. 5. Cerebrovascular accident. PLAN: SNU screen. Debridement 01/04/19 cuate heal ulcers. s/p stent placement for PVD. To continue with wound care. Continue offloading his wounds. Continue to monitor his blood sugar and adjust insulin as needed. labs reviewed , spoke with staff. Comment Review of Relevant I have reviewed the following items kaylah (where applicable) has been applied. Labs Laboratory Tests Test 01/04/19 11:31 01/04/19 17:05 01/04/19 21:28 01/05/19 07:08 Glucose (Fingerstick) 113 mg/dL (70-99) 199 mg/dL (70-99) 180 mg/dL (70-99) 89 mg/dL (70-99) Medications Current Medications Ephedrine Sulfate (Akovaz) 50 mg STK-MED ONCE .ROUTE ; Start 01/04/19 at 11:01; Stop 01/04/19 at 11:02; Status DC Fentanyl Citrate (Fentanyl 2ml Vial) 100 mcg STK-MED ONCE .ROUTE ; Start 01/04/19 at 10:26; Stop 01/04/19 at 10:26; Status DC Lidocaine HCl (Lidocaine Pf 2% Vial) 5 ml STK-MED ONCE .ROUTE ; Start 01/04/19 at 10:26; Stop 01/04/19 at 10:26; Status DC Ondansetron HCl (Zofran) 4 mg STK-MED ONCE .ROUTE ; Start 01/04/19 at 10:57; Stop 01/04/19 at 10:58; Status DC Phenylephrine HCl (PHENYLEPHRINE in 0.9% NACL PF) 1 mg STK-MED ONCE IV ; Start 01/04/19 at 10:57; Stop 01/04/19 at 10:58; Status DC Propofol 20 ml @ As Directed STK-MED ONCE IV ; Start 01/04/19 at 10:26; Stop 01/04/19 at 10:26; Status DC Risperidone (RisperDAL CONSTA) 12.5 mg Q2WKS IM ; Start 01/07/19 at 09:00 Sevoflurane (Ultane) 30 ml STK-MED ONCE IH ; Start 01/04/19 at 10:57; Stop 01/04/19 at 10:58; Status DC Vitals/I & O Vital Sign - Last 24 Hours 01/04/19 01/04/19 01/04/19 01/04/19 10:23 11:25 11:25 11:41 Temp 97.6 97.1 97.6 97.1 Pulse 88 102 105 Resp 15 17 16 B/P (MAP) 110/56 92/46 88/50 Pulse Ox 94 96 O2 Delivery Room Air Mask Simple Mask Room Air O2 Flow Rate 10 10 01/04/19 01/04/19 01/04/19 01/04/19 11:50 11:56 12:30 12:45 Temp 91.3 97.4 91.3 97.4 Pulse 102 100 99 Resp 16 16 B/P (MAP) 101/43 97/50 (66) 91/45 (60) Pulse Ox 95 92 92 O2 Delivery Room Air Mask O2 Flow Rate 10 01/04/19 01/04/19 01/04/19 01/04/19 13:00 13:16 13:31 14:47 Pulse 102 103 107 107 B/P (MAP) 91/50 (64) 81/40 (54) 103/40 (61) 88/48 (61) Pulse Ox 93 95 01/04/19 01/04/19 01/04/19 01/04/19 15:00 15:48 19:00 20:00 Temp 98.1 98.1 98.1 98.1 Pulse 106 104 101 Resp 16 16 B/P (MAP) 93/51 (65) 93/51 (65) 122/61 (81) Pulse Ox 94 95 O2 Delivery Mask 01/04/19 01/04/19 01/05/19 01/05/19 21:41 23:00 03:00 07:00 Temp 98.0 97.9 97.7 98.0 97.9 97.7 Pulse 101 99 100 73 Resp 18 18 20 B/P (MAP) 122/61 108/88 (95) 127/72 (90) 117/68 (84) Pulse Ox 94 94 97 O2 Delivery Room Air Intake and Output 01/04/19 01/04/19 01/05/19 15:00 23:00 07:00 Intake Total 400 ml 0 ml Output Total 5 ml Balance 395 ml 0 ml AUGUSTO DIOR MD Jan 05, 2019 09:32
[2019-01-05 11:00] VITALS: BP 104/57
--- NOTE | 2019-01-05 13:57 | NUR ---
Wound care: Patient seen per wound care follow up regarding DFUs to bilateral heels. Dressings removed and wounds cleansed, assessed, measured, and pictured. Recommendations for collagen for this dressing change, then contact layer, and foam dressing. Dressings applied. No other wounds noted upon complete head to toe assessment. Dressing change instructions left in room. Bilateral heels floated. Patient is on a P-500 bed. Patient turned to right side. Bed lowered and call light in reach. Will follow patient regarding wound care.
[2019-01-05 15:00] VITALS: BP 118/65
--- NOTE | 2019-01-05 15:59 | NUR ---
SW consulted for SNU eval. SW requested for PT/OT order to eval needs. Discussed with Wound care, pt will not need wound vac but will benefit from going to SNU. JESSICA had spoken with Azeb from [facility] billet inspector and they were requesting SNU placement as they are still awaiting on approval for several things for pt's placement in [place]. Left a message for Aezb and pt's daughter, Loly regarding this. Will continue to follow.
[2019-01-05 19:00] VITALS: BP 103/53
[2019-01-05] MEDS: METOPROLOL TART IMMED RELEASE 25 MG TABLET. PO SCH (21:07)
[2019-01-05] MEDS: MIRTAZAPINE 7.5 MG TABLET. PO SCH (21:07)
[2019-01-05] MEDS: risperiDONE 0.25 MG TABLET. PO SCH (21:07)
[2019-01-05 23:00] VITALS: BP 124/64
[2019-01-06 03:00] VITALS: BP 100/54
[2019-01-06 07:00] VITALS: BP 124/68
[2019-01-06] MEDS: INSULIN LISPRO 300 UNITS/3 ML VIAL. SQ SCH ×3 (08:00→17:00)
[2019-01-06] MEDS: ASPIRIN CHEWABLE 81 MG TABLET. PO SCH (08:16)
[2019-01-06] MEDS: metFORMIN 500 MG TABLET PO SCH ×2 (08:18→17:48)
[2019-01-06] MEDS: LACTOBACILLUS RHAMNOSUS GG 1 CAPSULE. PO SCH ×2 (09:18→21:10)
[2019-01-06] MEDS: CARBIDOPA/LEVODOPA 10/100MG TABLET PO SCH ×3 (09:19→21:10)
[2019-01-06] MEDS: ASCORBIC ACID 500 MG TABLET PO SCH ×3 (09:20→21:10)
[2019-01-06] MEDS: INSULIN GLARGINE SYRINGE. SQ SCH ×2 (09:20→21:15)
[2019-01-06] MEDS: CILOSTAZOL 50 MG TABLET. PO SCH (09:55)
--- NOTE | 2019-01-06 09:56 | PDOC ---
PROGRESS NOTES Subjective Subjective no new problems Objective Objective Vital Signs Date Time Temp Pulse Resp B/P (MAP) Pulse Ox O2 Delivery O2 Flow Rate FiO2 01/06/19 07:00 97.9 87 18 124/68 (86) 97 Room Air 97.9 Intake and Output 01/06/19 07:00 Intake Total 220 ml Balance 220 ml Intake Oral 220 ml # Voids 2 Physical Exam Abdomen: Normal bowel sounds, Soft Heart: Regular rate, Normal S1 Extremities: No clubbing General: Alert HEENT: Atraumatic Lungs: Clear to auscultation Neck: Supple Neuro: Normal speech Psych/Mental Status: Mood NL Skin: Other COMMENT cuate heal dressing s/p surgery on both heals Assessment Assessment ASSESSMENT: 1. Bilateral heel decubitus ulcers, worse on the left. 2. Severe peripheral vascular disease, status post angioplasty with stent. 3. Type 2 diabetes mellitus, reasonably controlled. 4. Hypertension. 5. Cerebrovascular accident. PLAN: SNU screen waiting for placement. Debridement done on 01/04/19 cuate heal ulcers. s/p stent placement for PVD. To continue with wound care. Continue offloading his wounds. Continue to monitor his blood sugar and adjust insulin as needed. labs reviewed , spoke with staff. Comment Review of Relevant I have reviewed the following items kaylah (where applicable) has been applied. Labs Laboratory Tests Test 01/05/19 11:57 01/05/19 16:49 01/05/19 20:34 01/06/19 07:47 Glucose (Fingerstick) 100 mg/dL (70-99) 135 mg/dL (70-99) 155 mg/dL (70-99) 93 mg/dL (70-99) Medications Current Medications Cilostazol (Pletal) 100 mg BID@0600,1800 PO ; Start 01/07/19 at 06:00 Risperidone (RisperDAL CONSTA) 12.5 mg Q2WKS IM ; Start 01/07/19 at 09:00 Vitals/I & O Vital Sign - Last 24 Hours 01/05/19 01/05/19 01/05/19 01/05/19 11:00 15:00 19:00 21:07 Temp 97.5 97.6 98.0 97.5 97.6 98.0 Pulse 85 105 109 109 Resp 18 18 16 B/P (MAP) 104/57 (73) 118/65 (82) 103/53 (70) 103/53 Pulse Ox 95 94 94 O2 Delivery Room Air Room Air Room Air 01/05/19 01/06/19 01/06/19 23:00 03:00 07:00 Temp 97.3 97.2 97.9 97.3 97.2 97.9 Pulse 101 88 87 Resp 18 16 18 B/P (MAP) 124/64 (84) 100/54 (69) 124/68 (86) Pulse Ox 90 98 97 O2 Delivery Room Air Room Air Room Air Intake and Output 01/05/19 01/05/19 01/06/19 15:00 23:00 07:00 Intake Total 120 ml 100 ml 0 ml Balance 120 ml 100 ml 0 ml AUGUSTO DIOR MD Jan 06, 2019 09:56
[2019-01-06] MEDS ORDERED: CILO50TA PO ×2 (10:04)
[2019-01-06] MEDS ORDERED: ASCO500T2 PO (10:04)
[2019-01-06] MEDS ORDERED: ASPI-630 PO (10:04)
[2019-01-06] MEDS ORDERED: METF500T PO (10:04)
[2019-01-06] MEDS ORDERED: INSU100I11 SQ (10:04)
[2019-01-06] MEDS ORDERED: CARB1TAB20 PO (10:04)
[2019-01-06] MEDS ORDERED: RISP37.5 IM (10:04)
[2019-01-06] MEDS ORDERED: METO25TA4 PO (10:04)
[2019-01-06] MEDS ORDERED: INSU100V8 SQ (10:04)
[2019-01-06] MEDS ORDERED: MIRT7.5T8 PO (10:04)
[2019-01-06] MEDS ORDERED: RISP0.2519 PO (10:04)
--- NOTE | 2019-01-06 10:06 | SNU/HH DC ---
DISCHARGE ORDERS DISCHARGE INFORMATION: DISCHARGE DATE: Jan 06, 2019 CONDITION ON DISCHARGE: Stable CODE STATUS: Code Status: Full CARE HOME: SNF STAY <30 DAYS: Yes HOSPICE: HOSPICE: No LTAC: ADMIT TO LTAC: No POST DISCHARGE ORDERS: ACTIVITY ORDERS: Activity as tolerated DIET AFTER DISCHARGE: ADA OTHER WOUND INSTRUCTIONS: see wound care instructions CHECKS AFTER DISCHARGE: CHECKS AFTER DISCHARGE: Check blood sugar, ac/hs TREATMENT/EQUIPMENT ORDERS: Physical Therapy For: Evalulation/Treatment Occupational Therapy For: Evaluation/Treatment DISCHARGE MEDICATIONS: Home Meds Active Scripts Cilostazol (CILOSTAZOL) 50 Mg Tablet, 100 MG PO BID for pvd for 30 Days, #120 TAB Prov:AUGUSTO DIOR MD 01/06/19 Risperidone Microspheres (RISPERDAL CONSTA) 37.5 Mg/2 Ml Disp.syrin, 12.5 MG IM Q2WKS for agitation for 30 Days, DIS.SYR Prov:AUGUSTO DIOR MD 01/06/19 Risperidone (RISPERDAL) 0.25 Mg Tablet, 0.25 MG PO QHS for agitation for 30 Days, #30 TAB Prov:AUGUSTO DIOR MD 01/06/19 Carbidopa/Levodopa (CARBIDOPA-LEVODOPA 10-100 TAB) 1 Each Tablet, 1 TAB PO TID for cuong for 30 Days, #90 TAB Prov:AUGUSTO DIOR MD 01/06/19 Insulin Lispro (HUMALOG) 100 Unit/1 Ml Insuln.pen, 1-10 UNITS SQ TIDWMEALS for dm for 30 Days, EACH Prov:AUGUSTO DIOR MD 01/06/19 Ascorbic Acid (VITAMIN C) 500 Mg Tablet, 500 MG PO BID for wounds for 30 Days, #60 TAB Prov:AUGUSTO DIOR MD 01/06/19 Insulin Glargine,Hum.rec.anlog (LANTUS) 100 Unit/1 Ml Vial, 35 UNIT SQ QHS for dm for 30 Days, EACH Prov:AUGUSTO DIOR MD 01/06/19 Metformin Hcl (GLUCOPHAGE) 500 Mg Tablet, 1000 MG PO BIDWMEALS for dm for 30 Days, #120 TAB Prov:AUGUSTO DIOR MD 01/06/19 Mirtazapine (MIRTAZAPINE) 7.5 Mg Tablet, 7.5 MG PO QHS for depression for 30 Days, #30 TAB Prov:AUGUSTO DIOR MD 01/06/19 Aspirin (ASPIRIN) 81 Mg Tab.chew, 81 MG PO DAILYWBKFT for pvd for 30 Days, #30 TAB.CHEW Prov:AUGUSTO DIOR MD 01/06/19 Metoprolol Tartrate (METOPROLOL TARTRATE) 25 Mg Tablet, 25 MG PO QHS for htn for 30 Days, #30 TAB Prov:AUGUSTO DIOR MD 01/06/19 Cilostazol (CILOSTAZOL) 50 Mg Tablet, 100 MG PO BID@0600,1800 for pvd for 30 Days, TAB Prov:AUGUSTO DIOR MD 01/06/19 AUGUSTO DIOR MD Jan 06, 2019 10:06
[2019-01-06 11:00] VITALS: BP 132/74
--- NOTE | 2019-01-06 11:41 | PDOC ---
Provider Note Provider Note Vascular Pt seen and examined this am with no complaints AF VSS awake and alert right groin soft, with no hematoma right and left foot with dry dressings, has necrotic bilateral heel ulcers A/P 73 year old male with bilateral heel ulcers (left worse than right) and peripheral artery disease. He had an angiogram with left popliteal artery angioplasty. No significant right leg disease. s/p bilateral heel debridements - Continue wound care, follow up in wound care center as well as with Dr. Coker on 01/20 930 with [facility] - Pt should be on asa and plavix s/p intervention - DC pletal - Stable for discharge from vascular surgery standpoint once medically stable. We will sign off and see him for follow up. EDILBERTO CEE Jan 06, 2019 11:41
--- NOTE | 2019-01-06 13:33 | NUR ---
JESSICA following pt. JESSICA phoned and faxed referral to [facility] and [facility] re[facility]. [facility] declined. [facility] reviewing clinicals. Pt acceptance and admission pending. JESSICA had discussed SNU options with Alfredo GONSALEZ yesterday and above facilities were options chosen by pt's daughter. Will continue to follow.
[2019-01-06 15:00] VITALS: BP 131/67
--- NOTE | 2019-01-06 16:40 | NUR ---
JESSICA following pt. [facility] declined pt. JESSICA phoned and faxed referral to Various SNU in [facility] and [facility] [place]. Awaiting on acceptance.
[2019-01-06 19:00] VITALS: BP 108/58
[2019-01-06] MEDS: risperiDONE 0.25 MG TABLET. PO SCH (21:10)
[2019-01-06] MEDS: MIRTAZAPINE 7.5 MG TABLET. PO SCH (21:10)
[2019-01-06] MEDS: METOPROLOL TART IMMED RELEASE 25 MG TABLET. PO SCH (21:10)
[2019-01-06 23:00] VITALS: BP 109/67
[2019-01-07 03:00] VITALS: BP 99/59
[2019-01-07] MEDS ORDERED: CILOSTAZOL 50 MG TABLET. PO SCH (06:00)
[2019-01-07 07:00] VITALS: BP 117/53
[2019-01-07] MEDS: INSULIN LISPRO 300 UNITS/3 ML VIAL. SQ SCH ×3 (08:00→17:00)
[2019-01-07] MEDS: CLOPIDOGREL BISULFATE 75 MG TABLET PO SCH (08:52)
[2019-01-07] MEDS: ASCORBIC ACID 500 MG TABLET PO SCH ×2 (08:52→21:34)
[2019-01-07] MEDS: LACTOBACILLUS RHAMNOSUS GG 1 CAPSULE. PO SCH ×2 (08:52→21:34)
[2019-01-07] MEDS: metFORMIN 500 MG TABLET PO SCH ×2 (08:52→17:38)
[2019-01-07] MEDS: ASPIRIN CHEWABLE 81 MG TABLET. PO SCH (08:53)
[2019-01-07] MEDS: CARBIDOPA/LEVODOPA 10/100MG TABLET PO SCH ×3 (08:53→21:34)
[2019-01-07] MEDS: INSULIN GLARGINE SYRINGE. SQ SCH ×2 (08:57→21:39)
[2019-01-07] MEDS ORDERED: risperiDONE MICROSPHERES 12.5 MG/2 ML DISP.SYRIN. IM SCH (09:00)
[2019-01-07] MEDS ORDERED: risperiDONE MICROSPHERES 37.5 MG/2 ML DISP.SYRIN. IM SCH (09:00)
--- NOTE | 2019-01-07 09:32 | NUR ---
SW following pt. [facility] declined. Awaiting on acceptance from other SNU's. Discussed with RN.
--- NOTE | 2019-01-07 10:17 | PDOC ---
PROGRESS NOTES Subjective Subjective no new problems Objective Objective Vital Signs Date Time Temp Pulse Resp B/P (MAP) Pulse Ox O2 Delivery O2 Flow Rate FiO2 01/07/19 07:00 97.9 90 18 117/53 (74) 93 Room Air 97.9 Physical Exam Abdomen: Normal bowel sounds, Soft Heart: Regular rate, Normal S1 Extremities: No clubbing General: Alert HEENT: Atraumatic Lungs: Clear to auscultation Neck: Supple Neuro: Normal speech Psych/Mental Status: Mood NL Skin: Other COMMENT cuate heal dressing s/p surgery on both heals Assessment Assessment ASSESSMENT: 1. Bilateral heel decubitus ulcers, worse on the left. 2. Severe peripheral vascular disease, status post angioplasty with stent. 3. Type 2 diabetes mellitus, reasonably controlled. 4. Hypertension. 5. Cerebrovascular accident. PLAN: d/c to SNU today SNU screen waiting for placement. Debridement done on 01/04/19 cuate heal ulcers. s/p stent placement for PVD. To continue with wound care. Continue offloading his wounds. Continue to monitor his blood sugar and adjust insulin as needed. labs reviewed , spoke with staff. Comment Review of Relevant I have reviewed the following items kaylah (where applicable) has been applied. Labs Laboratory Tests Test 01/06/19 11:48 01/06/19 16:37 01/06/19 21:44 01/07/19 07:30 Glucose (Fingerstick) 93 mg/dL (70-99) 96 mg/dL (70-99) 133 mg/dL (70-99) 68 mg/dL (70-99) Medications Current Medications Cilostazol (Pletal) 100 mg BID@0600,1800 PO ; Start 01/07/19 at 06:00; Stop 01/06/19 at 11:43; Status DC Clopidogrel Bisulfate (Plavix) 75 mg DAILYWBKFT PO Last administered on 01/07/19at 08:52; Start 01/07/19 at 08:00 Risperidone (RisperDAL CONSTA) 12.5 mg Q2WKS IM ; Start 01/07/19 at 09:00 Risperidone (RisperDAL CONSTA) 12.5 mg Q2WKS IM ; Start 01/07/19 at 09:00; Status Cancel Vitals/I & O Vital Sign - Last 24 Hours 01/06/19 01/06/19 01/06/1901/06/19 11:00 15:00 19:00 21:10 Temp 97.4 97.8 98.9 97.4 97.8 98.9 Pulse 97 100 115 115 Resp 18 17 20 B/P (MAP) 132/74 (93) 131/67 (88) 108/58 (75) 108/58 Pulse Ox 99 97 96 O2 Delivery Room Air Room Air 01/06/19 01/07/19 01/07/19 23:00 03:00 07:00 Temp 98.2 98.8 97.9 98.2 98.8 97.9 Pulse 114 85 90 Resp 18 18 18 B/P (MAP) 109/67 (81) 99/59 (72) 117/53 (74) Pulse Ox 98 94 93 O2 Delivery Room Air AUGUSTO DIOR MD Jan 07, 2019 10:17
[2019-01-07] MEDS ORDERED: CLOP75TA PO (10:18)
--- NOTE | 2019-01-07 10:19 | SNU/HH DC ---
DISCHARGE ORDERS DISCHARGE INFORMATION: DISCHARGE DATE: Jan 06, 2019 CONDITION ON DISCHARGE: Stable CODE STATUS: Code Status: Full POST DISCHARGE ORDERS: ACTIVITY ORDERS: Activity as tolerated DIET AFTER DISCHARGE: ADA OTHER WOUND INSTRUCTIONS: see wound care instructions CHECKS AFTER DISCHARGE: CHECKS AFTER DISCHARGE: Check blood sugar, ac/hs FOLLOW-UP: PHYSICIAN FOLLOW-UP: f/u vascular dr hunt ADDITIONAL FOLLOW-UP: f/u wound care ctr LAB ORDERS FOR FOLLOW-UP: cbc/cmp thursday and weekly for 4 weeks TREATMENT/EQUIPMENT ORDERS: Physical Therapy For: Evalulation/Treatment Occupational Therapy For: Evaluation/Treatment DISCHARGE MEDICATIONS: Home Meds Active Scripts Clopidogrel Bisulfate (CLOPIDOGREL) 75 Mg Tablet, 1 TAB PO DAILY for leg stent, #90 TAB 1 Refill Prov:AUGUSTO DIOR MD 01/07/19 Risperidone Microspheres (RISPERDAL CONSTA) 37.5 Mg/2 Ml Disp.syrin, 12.5 MG IM Q2WKS for agitation for 30 Days, DIS.SYR Prov:AUGUSTO DIOR MD 01/06/19 Risperidone (RISPERDAL) 0.25 Mg Tablet, 0.25 MG PO QHS for agitation for 30 Days, #30 TAB Prov:AUGUSTO DIOR MD 01/06/19 Carbidopa/Levodopa (CARBIDOPA-LEVODOPA 10-100 TAB) 1 Each Tablet, 1 TAB PO TID for cuong for 30 Days, #90 TAB Prov:AUGUSTO DIOR MD 01/06/19 Insulin Lispro (HUMALOG) 100 Unit/1 Ml Insuln.pen, 1-10 UNITS SQ TIDWMEALS for dm for 30 Days, EACH Prov:AUGUSTO DIOR MD 01/06/19 Ascorbic Acid (VITAMIN C) 500 Mg Tablet, 500 MG PO BID for wounds for 30 Days, #60 TAB Prov:AUGUSTO DIOR MD 01/06/19 Insulin Glargine,Hum.rec.anlog (LANTUS) 100 Unit/1 Ml Vial, 35 UNIT SQ QHS for dm for 30 Days, EACH Prov:AUGUSTO DIOR MD 01/06/19 Metformin Hcl (GLUCOPHAGE) 500 Mg Tablet, 1000 MG PO BIDWMEALS for dm for 30 Days, #120 TAB Prov:AUGUSTO DIOR MD 01/06/19 Mirtazapine (MIRTAZAPINE) 7.5 Mg Tablet, 7.5 MG PO QHS for depression for 30 Days, #30 TAB Prov:AUGUSTO DIOR MD 01/06/19 Aspirin (ASPIRIN) 81 Mg Tab.chew, 81 MG PO DAILYWBKFT for pvd for 30 Days, #30 TAB.CHEW Prov:AUGUSTO DIOR MD 01/06/19 Metoprolol Tartrate (METOPROLOL TARTRATE) 25 Mg Tablet, 25 MG PO QHS for htn for 30 Days, #30 TAB Prov:AUGUSTO DIOR MD 01/06/19 AUGUSTO DIOR MD Jan 07, 2019 10:19
[2019-01-07 11:00] VITALS: BP 130/67
[2019-01-07 15:00] VITALS: BP 101/57
--- NOTE | 2019-01-07 16:36 | NUR ---
SW following pt. Pt has been accepted [facility], phone: [phone], fax: [phone]. They will take pt tomorrow. Pt's daughter and RN notified. Information on pt's packet.
[2019-01-07 19:00] VITALS: BP 115/64
[2019-01-07] MEDS: METOPROLOL TART IMMED RELEASE 25 MG TABLET. PO SCH (21:34)
[2019-01-07] MEDS: MIRTAZAPINE 7.5 MG TABLET. PO SCH (21:34)
[2019-01-07] MEDS: risperiDONE 0.25 MG TABLET. PO SCH (21:34)
[2019-01-07 22:19] VITALS: BP 115/65
[2019-01-08 03:27] VITALS: BP 119/47
[2019-01-08 07:00] VITALS: BP 146/75
[2019-01-08] MEDS: INSULIN LISPRO 300 UNITS/3 ML VIAL. SQ SCH ×2 (08:00→11:37)
[2019-01-08] MEDS: LACTOBACILLUS RHAMNOSUS GG 1 CAPSULE. PO SCH (10:07)
[2019-01-08] MEDS: CLOPIDOGREL BISULFATE 75 MG TABLET PO SCH (10:07)
[2019-01-08] MEDS: CARBIDOPA/LEVODOPA 10/100MG TABLET PO SCH (10:08)
[2019-01-08] MEDS: ASCORBIC ACID 500 MG TABLET PO SCH (10:08)
[2019-01-08] MEDS: metFORMIN 500 MG TABLET PO SCH (10:08)
[2019-01-08] MEDS: ASPIRIN CHEWABLE 81 MG TABLET. PO SCH (10:08)
[2019-01-08 11:00] VITALS: BP 114/69
--- NOTE | 2019-01-08 11:07 | PDOC ---
PROGRESS NOTES Subjective Subjective no new problems Objective Objective Vital Signs Date Time Temp Pulse Resp B/P (MAP) Pulse Ox O2 Delivery O2 Flow Rate FiO2 01/08/19 07:00 97.6 91 18 146/75 (98) 97 Room Air 97.6 Intake and Output 01/08/19 07:00 Intake Total 150 ml Balance 150 ml Intake Oral 150 ml # Voids 5 # Bowel Movements 3 Physical Exam Abdomen: Normal bowel sounds, Soft Heart: Regular rate, Normal S1 Extremities: No clubbing General: Alert HEENT: Atraumatic Lungs: Clear to auscultation Neck: Supple Neuro: Normal speech Psych/Mental Status: Mood NL Skin: Other COMMENT cuate heal dressing s/p surgery on both heals Assessment Assessment ASSESSMENT: 1. Bilateral heel decubitus ulcers, worse on the left. 2. Severe peripheral vascular disease, status post angioplasty with stent. 3. Type 2 diabetes mellitus, reasonably controlled. 4. Hypertension. 5. Cerebrovascular accident. PLAN: d/c to SNU today see discharge instructions Debridement done on 01/04/19 cuate heal ulcers. s/p stent placement for PVD.on plavix now To continue with wound care. Continue offloading his wounds. Continue to monitor his blood sugar and adjust insulin as needed. labs reviewed , spoke with staff. Comment Review of Relevant I have reviewed the following items kaylah (where applicable) has been applied. Labs Laboratory Tests Test 01/07/19 11:34 01/07/19 16:58 01/07/19 21:21 01/08/19 07:52 Glucose (Fingerstick) 86 mg/dL (70-99) 85 mg/dL (70-99) 157 mg/dL (70-99) 89 mg/dL (70-99) Vitals/I & O Vital Sign - Last 24 Hours 01/07/19 01/07/19 01/07/19 01/07/19 15:00 19:00 21:00 21:34 Temp 97.7 98.8 97.7 98.8 Pulse 90 109 90 Resp 16 16 B/P (MAP) 101/57 (72) 115/64 (81) 101/57 Pulse Ox 96 95 O2 Delivery Room Air Room Air 01/07/19 01/08/19 01/08/19 22:19 03:27 07:00 Temp 99.2 98.2 97.6 99.2 98.2 97.6 Pulse 95 79 91 Resp 18 18 18 B/P (MAP) 115/65 (82) 119/47 (71) 146/75 (98) Pulse Ox 93 96 97 O2 Delivery Room Air Room Air Room Air Intake and Output 01/07/19 01/07/19 01/08/19 15:00 23:00 07:00 Intake Total 50 ml 100 ml Balance 50 ml 100 ml AUGUSTO DIOR MD Jan 08, 2019 11:07
[2019-01-08] MEDS: INSULIN GLARGINE SYRINGE. SQ SCH (12:25)
--- NOTE | 2019-01-08 13:00 | NUR ---
PATIENT LEAVES THE UNIT AFTER BEING PLACED IN WHEELCHAIR PER USE OF THE STEPHANE LIFT, PATIENT ALERT AND VERBALLY RESPONSIVE AND DENIES PAIN/DISCOMFORT AT THIS TIME. ALL PERSONAL BELONGINGS PLACED IN BAGS PER COMMUNICATIONS STATION MANAGER AND SENT WITH PATIENT AT TIMES OF DISCHARGE. DRESSINGS CHANGED TO BILATERAL WOUNDS AND PICTURES TAKEN AND PLACED IN THE CHART.
--- NOTE | 2019-01-08 13:15 | NUR ---
REPORT CALLED TO SALINAS (NURSE AT [facility]), QUESTIONS AND CONCERNS ANSWERED, COPY OF DISCHARGE ORDER FAXED TO THE FACILITY.
== END 2019-01-08 13:15 | DRG 253 ==
LOC: 5 SOUTH 20:14
PROVIDERS: ADMIT Internal Medicine; ATTEND Internal Medicine
PROC: 047N3ZZ Dilation of Left Popliteal Artery, Percutaneous Approach (ICD-10-PCS; 2018-12-31)
PROC: B41D1ZZ Fluoroscopy of Aorta and Bilateral Lower Extremity Arteries using Low Osmolar Contrast (ICD-10-PCS; 2018-12-31)
PROC: 0JBQ0ZZ Excision of Right Foot Subcutaneous Tissue and Fascia, Open Approach (ICD-10-PCS; 2019-01-04)
PROC: 0JBR0ZZ Excision of Left Foot Subcutaneous Tissue and Fascia, Open Approach (ICD-10-PCS; principal; 2019-01-04 11:00)
DX: E11.52 Type 2 diabetes mellitus with diabetic peripheral angiopathy with gangrene (principal); I96 Gangrene, not elsewhere classified; F02.81 Dementia in other diseases classified elsewhere, unspecified severity, with behavioral disturbance; E78.5 Hyperlipidemia, unspecified; I10 Essential (primary) hypertension; L73.9 Follicular disorder, unspecified; L89.619 Pressure ulcer of right heel, unspecified stage; L89.629 Pressure ulcer of left heel, unspecified stage; M15.9 Polyosteoarthritis, unspecified; G30.9 Alzheimer's disease, unspecified; F32.9 Major depressive disorder, single episode, unspecified; E11.621 Type 2 diabetes mellitus with foot ulcer; Z86.73 Personal history of transient ischemic attack (TIA), and cerebral infarction without residual deficits; Z87.891 Personal history of nicotine dependence; Z99.3 Dependence on wheelchair; Z89.422 Acquired absence of other left toe(s); Z89.421 Acquired absence of other right toe(s); Z79.899 Other long term (current) drug therapy; Z79.4 Long term (current) use of insulin
CPT/HCPCS: 36415; 37224; 73630; 75625; 75716; 76937; 80053; 82962; 85027; 85610; 85651; 85730; 86140; 90471; 90686; 93880; 99152; 99153; A7015; C1713; C1725; C1760; C1769; C1892; C1894; G0269; J0696; J1644; J1815; J2001; J2250; J2370; J2405; J2704; J2794; J3010; J7040; J7120; Q9967; 97110; A4461; G0378